=== PATIENT | female | born 1945 | race Hispanic/Latino ===

== ENCOUNTER 2024-05-12 09:35 | Emergency (ER) | payer MEDICARE ==
[~2024-05-12] VITALS: Ht 165.1 cm; Wt 67.1 kg
--- NOTE | 2024-05-12 10:19 | ERN ---
ED Note History of Present Illness Stated Complaint: COVID POSITIVE Chief Complaint: Cough Time Seen by MD: 10:03 Dictation: Patient is a 78-year-old female who has had a cough and flu-like symptoms for 3- 4 days. She says the cough has clear yellow phlegm. States she took a COVID test today and had a positive she came in wanting a shot for COVID-19 I told her that we do not have a injection available for that that I could prescribe the antivirals and that is what she wants She states she wants know testing and does not have a primary care doctor to go see. Allergies: Coded Allergies: No Known Drug Allergies (Unverified Allergy, Unknown, 05/12/24) Past Medical History Past Medical History: High Cholesterol, Stroke Surgical History: Hysterectomy RN Note Reviewed/Agreed w/PFSH: Yes Review of System Dictation CONSTITUTIONAL: NEGATIVE EXCEPT FOR HPI HEAD/FACE: NEGATIVE EXCEPT FOR HPI EENT: NEGATIVE EXCEPT FOR HPI RESPIRATORY: NEGATIVE EXCEPT FOR HPI COUGH GASTROINTESTINAL/ABDOMINAL: NEGATIVE EXCEPT FOR HPI GENITOURINARY: NEGATIVE EXCEPT FOR HPI MUSCULOSKELETAL: NEGATIVE EXCEPT FOR HPI INTEGUMENTARY: NEGATIVE EXCEPT FOR HPI NEUROLOGICAL/PSYCH: NEGATIVE EXCEPT FOR HPI HEMATOLOGIC/LYMPHATIC: NEGATIVE EXCEPT FOR HPI ALL SYSTEMS NEGATIVE, EXCEPT NOTED ABOVE. 13 POINT REVIEW OF SYSTEMS ASSESSED AND ALL NEGATIVE EXCEPT FOR ABOVE. Initial Vital Sign VS Vital Signs Date Time Temp Pulse Resp B/P (MAP) Pulse Ox O2 Delivery O2 Flow Rate FiO2 05/12/24 09:40 98.6 92 18 133/67 99 Room Air 0 Physical Exam Dictation VITAL SIGNS REVIEWED GENERAL APPEARANCE: ALERT, ORIENTED X 3, NO ACUTE DISTRESS, WELL DEVELOPED, NOURISHED. HEAD AND FACE: NON-TRAUMATIC. EYES: PERRL, PINK CONJUNCTIVAS, EYELID NO TRAUMA, ANTERIOR CHAMBER WITH ARCUS SENILIS. EARS: PINNAS INTACT AND NO SIGNS OF TRAUMA OR ERYTHEMA EAR CANALS CLEAR AND NO DISCHARGE TM NO ERYTHEMA NOSE: CLEAR DISCHARGE, NO BLEEDING. OROPHARYNX: MOUTH NORMAL, TONGUE PINK, PHARYNX CLEAR,NO ERYTHEMA, TONSILS NO EXUDATES, NO ABSCESSES NOTED, MUCOUS MEMBRANE MOIST NECK: SUPPLE, NON-TENDER, NO THYROMEGALY, NO MASSES, NO JVD, NO BRUITS BREAST:DEFERRED CHEST:NO TENDERNESS, NO CREPITUS, NO PARADOXICAL MOVEMENT, NO RETRACTIONS LUNGS:CLEAR, WELL-VENTILATED, SYMMETRIC, NO RALES, NO WHEEZING, NO RHONCHI, NO STRIDOR, GOOD BREATH SOUNDS BILATERALLY NO COUGH AT PRESENT TIME HEART: REGULAR RATE, REGULAR RHYTHM, NO MURMUR, NO GALLOPS VASCULAR: NO PERIPHERAL EDEMA, ABDOMEN: SOFT, POSITIVE BOWEL SOUNDS, NONDISTENDED, NO GUARDING, NONTENDER, NO REBOUND, NO MASSES NO HEPATOMEGALY, NO SPLENOMEGALY, NO JOHNSON'S SIGN, NO HERNIAS. RECTAL: DEFERRED GENITAL: DEFERRED NEUROLOGICAL: NORMAL SPEECH, MOTOR FUNCTION INTACT, SENSORY FUNCTION INTACT MUSCULOSKELETAL: NECK NONTENDER, FULL RANGE OF MOTION, BACK NONTENDER, FULL RANGE OF MOTION, EXTREMITIES: NONTENDER, FULL RANGE OF MOTION SKIN: COLOR PINK, DRY, NO TURGOR, NO RASH, NO LACERATIONS, NO ABRASIONS, NO CONTUSIONS. LYMPHATIC: DEFERRED Results (Laboratory/Radiology) Labs Reviewed?: Yes ED Course ED Course Vital Signs Date Time Temp Pulse Resp B/P (MAP) Pulse Ox O2 Delivery O2 Flow Rate FiO2 05/12/24 09:40 98.6 92 18 133/67 99 Room Air 0 ELEVEN 15, PATIENT REFUSED LABS STATES I HAVE A POSITIVE COVID TEST AND HERE IS A COPY OF IT ON HER PHONE. SHE WANTS TO BE TREATED WITH PAXLOVID AND SENT HOME. Medical Decision Making MDM MEDICAL DISCHARGE MAKING BASED ON TREATMENT OF A POSITIVE COVID TEST. PATIENT WILL BE PRESCRIBED PAXLOVID AND OSMIN TOLD TO SEE HER PRIMARY CARE DOCTOR. DX & DISP Disposition: Discharge Departure Impression: Primary Impression: COVID-19 virus infection Additional Impression: Cough Condition: Stable Scripts Benzonatate (Tessalon Rossi) 100 Mg Cap 100 MG PO TID for cough, #30 CAP 0 Refills Prov: ANGI MORRISON NP 05/12/24 Nirmatrelvir/Ritonavir (Paxlovid 300-100 mg Dose Pack) 300 Mg (150 Mg X 2)-100 Mg Tab.ds.pk 1 EACH PO BID for 5 Days, #15 TAB Prov: ANGI MORRISON MECHANICAL CAD DESIGNER 05/12/24 Additional Instructions: FOLLOW-UP WITH PRIMARY CARE PROVIDER IN 1 TO 2 DAYS. TAKE MEDICATIONS DIRECTED HERE IN THE EMERGENCY ROOM. OKAY TO CONTINUE HOME MEDICATIONS UNLESS OTHERWISE DISCUSSED DURING YOUR VISIT IN THE EMERGENCY ROOM TODAY. RETURN TO YOUR NEAREST EMERGENCY ROOM IF SYMPTOMS WORSEN OR IF THERE IS NO IMPROVEMENT. CALL 911 IF YOU NEED IMMEDIATE ASSISTANCE. TAKE TYLENOL OR MOTRIN [id number] NEEDED AND IF NO CONTRAINDICATIONS ARE PRESENT. INCREASE ORAL HYDRATION. A WOUND CULTURE OR URINE CULTURE WAS ORDERED HERE IN THE EMERGENCY ROOM DEPARTMENT PLEASE FOLLOW-UP WITH PRIMARY CARE PROVIDER AND ADVISE THEM TO GET REPEAT PORTS FROM OUR FACILITY. IF YOU HAD ANY IVAN WRAP/SPLINTS THAT WERE APPLIED HERE, PLEASE DO NOT REMOVE THEM UNTIL YOU SEE YOUR PRIMARY CARE OR SPECIALTY. INCREASE YOUR WATER INTAKE. FOLLOW UP WITH YOUR PRIMARY CARE DOCTOR HER LOCAL URGENT CARE NEEDED. Time of Disposition: 11:17 I have reviewed the case, and I agree with, Diagnosis and Plan ANGI MORRISON NP May 12, 2024 10:19
[2024-05-12] MEDS ORDERED: NIRM1TAB9 PO (11:18)
[2024-05-12] MEDS ORDERED: BENZ-39 PO (11:18)
[2024-05-12 11:41] VITALS: BP 128/57; PULSE 78; RESP 16; TEMP 98.7; O2SAT 99
== END 2024-05-12 11:43 | disposition home or self-care (01) ==
LOC: EDH 09:35
DX: U07.1 COVID-19 (principal); E78.00 Pure hypercholesterolemia, unspecified; Z86.73 Personal history of transient ischemic attack (TIA), and cerebral infarction without residual deficits; Z90.710 Acquired absence of both cervix and uterus
CPT/HCPCS: 99283